=== PATIENT | female | born 1990 | race Caucasian/White ===

== ENCOUNTER 2021-08-26 12:46 | Emergency (ER) | payer OTHER ==
[~2021-08-26] VITALS: Ht 170.2 cm; Wt 72.7 kg
[2021-08-26 13:14] VITALS: BP 118/83; PULSE 79; TEMP 99
== END 2021-08-26 15:22 | disposition home or self-care (01) ==
LOC: COL.ER 12:46
DX: S61.215A Laceration without foreign body of left ring finger without damage to nail, initial encounter (principal); Z28.310 Unvaccinated for COVID-19; Z79.01 Long term (current) use of anticoagulants; W26.0XXA Contact with knife, initial encounter